=== PATIENT | female | born 1960 | race Caucasian/White ===

== ENCOUNTER 2018-02-17 22:06 | Inpatient (IN) | payer MEDICARE, OTHER ==
[~2018-02-17] VITALS: Ht 154.9 cm; Wt 64.4 kg
--- NOTE | 2018-02-17 22:10 | NUR ---
PT MATILDE FROM HOME. PER REPORT, CAREGIVER GOT WORRIED AFTER PT STARTED VOMITING AND STARTING ACTING "OFF" AND STARTED TO TALK "GIBBERISH" CONFUSED SO CAREGIVER CALLED SISTER THEN DECIDED TO CALL 911. PT GOWNED AND PLACED ON MONITOR. SATTING LOW 90'S PLACED ON O2@2L/MIN. JAKE WHITT.
--- NOTE | 2018-02-17 22:18 | NUR ---
DR GOFF AT BEDSIDE FOR EVAL.
[2018-02-17] MEDS ORDERED: OLANZAPINE 10 MG VIAL IM ONE ×2 (22:24→22:30)
[2018-02-17] MEDS ORDERED: LORAZEPAM INJ 2 MG/ML VIAL ONE (22:24)
[2018-02-17] MEDS ORDERED: ONDANSETRON HCL/PF 4 MG/2 ML VIAL ONE (22:29)
[2018-02-17] MEDS ORDERED: LORAZEPAM INJ 2 MG/ML VIAL IV ONE (22:30)
[2018-02-17] MEDS ORDERED: ONDANSETRON HCL/PF 4 MG/2 ML VIAL IVP ONE (22:30)
--- NOTE | 2018-02-17 22:39 | NUR ---
IV LINE STARTED BLOOD DRAWN AND SENT TO LAB.
--- NOTE | 2018-02-17 22:40 | NUR ---
SISTER RAYRAY LEFT CONTACT # [phone]
[2018-02-17 22:49] LABS: BASOPHILS % (AUTO) 0.2 % (0.0-2.0); EOSINOPHILS % (AUTO) 0.2 % (0.0-6.0); HEMATOCRIT 31 % (33-45); HEMOGLOBIN 10.7 g/dL (11.5-14.8); LYMPHOCYTES # (AUTO) 0.9 /CMM (0.8-4.8); LYMPHOCYTES % (AUTO) 8.9 % (20.0-44.0); MEAN CORPUSCULAR HEMOGLOBIN 33 PG (26.0-33.0); MEAN CORPUSCULAR HGB CONC 34 g/dl (31.0-36.0); MEAN CORPUSCULAR VOLUME 96 fL (82-100); MONOCYTES # (AUTO) 0.2 /CMM (0.1-1.30); MONOCYTES % (AUTO) 2.3 % (2.0-12.0); NEUTROPHILS % (AUTO) 88.4 % (43.0-81.0); PLATELET COUNT (AUTO) 161 /CMM (150-450); RED BLOOD CELL COUNT(AUTO) 3.27 MIL/uL (4.0-5.2); WHITE BLOOD COUNT (AUTO) 10.2 K/uL (4.3-11.0)
--- NOTE | 2018-02-17 22:50 | NUR ---
PT TO RADIOLOGY FOR HEAD CT SCAN VIA [facility].
[2018-02-17 22:57] LABS: APPEARANCE,URINE CLEAR (CLEAR); BILIRUBIN,URINE NEGATIVE (NEGATIVE); BLOOD, URINE NEGATIVE Ery/uL (NEGATIVE); COLOR,URINE YELLOW (YELLOW); KETONES,URINE 1+ (NEGATIVE); LEUKOCYTE ESTERASE ,URINE NEGATIVE (NEGATIVE); NITRITE, URINE NEGATIVE (NEGATIVE); PROTEIN,URINE NEGATIVE (NEGATIVE); UGLUCOSE TRACE mg/dL (NEGATIVE); UROBILINOGEN,URINE 0.2 EU/dL (0.2)
[2018-02-17 23:05] LABS: BACTERIA,URINE None seen /HPF (None Seen); RBC,URINE 0-2 /HPF (0-2); SQUAMOUS EPITHELIAL CELL,UR Few /HPF (None Seen); WBC,URINE 0-2 /HPF (0-3)
[2018-02-17 23:06] LABS: MUCUS,URINE Few /LPF (None Seen)
[2018-02-17 23:08] LABS: INR 1.05 (0.87-1.13)
[2018-02-17 23:10] LABS: TROPONIN I 0.03 ng/mL (0.00-0.056)
[2018-02-17] MEDS ORDERED: QUET300T2 PO (23:10)
[2018-02-17] MEDS ORDERED: TRAZ5POW PO (23:10)
[2018-02-17] MEDS ORDERED: SERT25TA PO (23:10)
[2018-02-17] MEDS ORDERED: TRAZ-213 PO (23:10)
[2018-02-17] MEDS ORDERED: TRAZ-182 PO (23:12)
[2018-02-17 23:18] LABS: ALBUMIN 3.3 g/dL (3.4-5.0); BILIRUBIN,DIRECT 0.2 mg/dL (0.0-0.2); BILIRUBIN,TOTAL 0.8 mg/dL (0.2-1.0); CALCIUM, SERUM 7.9 mg/dL (8.5-10.1); CREATININE 0.6 mg/dL (0.6-1.3); POTASSIUM 3.4 mmol/L (3.5-5.1); TOTAL PROTEIN, SERUM 6.7 g/dL (6.4-8.2)
[2018-02-17 23:23] LABS: THYROID STIMULATING HORMONE 1.309 uIU/mL (0.358-3.74)
--- NOTE | 2018-02-17 23:56 | NUR ---
REPORT GIVEN TO RIGOBERTO JONES. PT AWAITING TRANSFER TO FLOOR.
[2018-02-18] VITALS (23 sets, daily range): BP systolic 96–158; BP diastolic 53–97
[2018-02-18] MEDS ORDERED: IV Sodium Chloride 3% 500 ML 500 ML IV ONE
[2018-02-18 00:26] LABS: OSMOLALITY,URINE 423 mOS/kg (340-1090)
--- NOTE | 2018-02-18 00:30 | NUR ---
TRANSFERED TO ICU FLOOR VIA ACLS PROTOCOL. MEDS INFUSING TO THE FLOOR. NO S/S OF ADVERSE REACTIONS NOTED AT THIS TIME. RESP EVEN AND UNLABORED.
[2018-02-18 00:31] LABS: OSMOLALITY,SERUM 236 mOS/kg (278-305)
--- NOTE | 2018-02-18 00:35 | NUR ---
Received patient from ED via ACLS protocol patient awake alert and oriented to name otherwise confused.Patient admitted with Dx :Hyponatremia.Hypertonic Saline 3% infusing to left forearm and site intact.Patient made comfortable.VS stable.SR per monitor.Normotensive.Patient moves in bed independently.Fall precaution initiated.
--- NOTE | 2018-02-18 01:50 | NUR ---
Patient restless.Franklin catheter Fr# 16 inserted under aseptic technique by environmental studies department chairOdiliaPatient tolerated well.FC draining moderate clear yellow urine.Specimen for MRSA nares collected and sent to lab.
[2018-02-18] MEDS ORDERED: DEXTROSE 50%-WATER 50 ML DISP.SYRIN IV PRN (02:00)
[2018-02-18] MEDS ORDERED: LACTULOSE 10 G/15 ML UDC (PYXIS) PO PRN (02:00)
[2018-02-18] MEDS ORDERED: IV NS 0.9% 250 ML IV ONE (02:30)
[2018-02-18] MEDS: POTASSIUM CL. PREMIX PERIPHER. 50 ML IV SCH ×4 (02:38→05:38)
[2018-02-18] MEDS ORDERED: ENOXAPARIN SODIUM 40 MG/0.4 ML DISP.SYRIN SQ SCH (03:00)
[2018-02-18] MEDS ORDERED: QUETIAPINE FUMARATE 25 MG TABLET PO ONE (03:30)
[2018-02-18] MEDS ORDERED: ZOLPIDEM TARTRATE 5 MG TABLET PO PRN (03:30)
[2018-02-18] MEDS ORDERED: ONDANSETRON HCL/PF 4 MG/2 ML VIAL IVP PRN (03:30)
[2018-02-18] MEDS ORDERED: ACETAMINOPHEN 325 MG TABLET PO PRN (03:30)
[2018-02-18] MEDS ORDERED: MAGNESIUM HYDROXIDE 30 ML UDC PO PRN (03:30)
--- NOTE | 2018-02-18 03:35 | NUR ---
Patient trying to get out of bed.Fall precaution maintained with side rails up x 3.Bed exit alarm on,locked and low position.Call light at bedside within easy reach with instructions.Claribel Gregg NP notified with orders and carried out.Swallow nurse screen done.Patient able to swallow ice water without difficulty. Seroquel po administered well tolerated.
[2018-02-18 04:31] LABS: CALCIUM, SERUM 8.2 mg/dL (8.5-10.1); CREATININE 0.5 mg/dL (0.6-1.3); POTASSIUM 3.8 mmol/L (3.5-5.1)
[2018-02-18 04:51] LABS: MAGNESIUM 1.5 mg/dL (1.8-2.4); PHOSPHORUS 2.7 mg/dL (2.5-4.9)
[2018-02-18] MEDS: BLOOD SUGAR DIAGNOSTIC 1 EACH STRIP IN SCH ×3 (06:03→18:14)
--- NOTE | 2018-02-18 06:24 | NUR ---
Patient awake and very agitated trying to get out of bed.Applied bilateral soft wrist restraints for safety.Fall precaution maintained.RECEPTIONIST SECRETARYYuriy notified.VS remains stable.Denies pain or sob.K+ level 3.4 KCL 40 meq IV completed.Patient with large volume of urine output.Continue to monitor.
[2018-02-18] MEDS: IV NS 0.9% 1,000 ML IV PRN (08:43)
[2018-02-18] MEDS: Magnesium 1GM/D5W 100ML PREMIX 100 ML IV SCH ×2 (10:00→11:14)
--- NOTE | 2018-02-18 10:45 | NUR ---
ICU/RN: Dr Bowen rounds; pt currently ambulating in hallway, no distress noted, hyperverbal, forgetful, requiring frequent orientation and 1:1 monitoring. Labs and pt hx discussed, pt clear for downgrade to tele. CT chest ordered with one time dose of ativan for anxiety. Aware that the patient is non-compliant and refuses monitoring and procedures. Relayed information from Dr Avalos (pt's physician) requesting a call, # provided. smart energy specialist updated and aware.
--- NOTE | 2018-02-18 10:59 | NUR ---
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 patient is refusing. Nurse told me patient is going to get ativan . When ready RN will call us.
[2018-02-18] MEDS ORDERED: LORAZEPAM INJ 2 MG/ML VIAL IV ONE (11:00)
--- NOTE | 2018-02-18 12:00 | NUR ---
ICU/RN: Pt hyperactive, easily distracted, unable to sit still in bed for extended periods of time. Ambulated in hallway, off monitoring, Dr Bowen aware. No distress noted. Awaiting 1:1 sitter.
[2018-02-18 13:03] LABS: CALCIUM, SERUM 8.6 mg/dL (8.5-10.1); CREATININE 0.9 mg/dL (0.6-1.3); POTASSIUM 3.4 mmol/L (3.5-5.1)
[2018-02-18] MEDS: QUETIAPINE FUMARATE 100 MG TABLET PO SCH (16:33)
[2018-02-18 18:11] LABS: URINE SODIUM, RANDOM 33 mmol/l (40-220)
[2018-02-18 18:56] LABS: OSMOLALITY,URINE 164 mOS/kg (340-1090)
--- NOTE | 2018-02-18 19:01 | NUR ---
ICU/RN: Report given to KAREN Cortez for tele downgrade. To be transferred by 1:1 sitter and noc extension service specialist in charge. Pt remains comfortable and in stable condition. FC draining well to gravity.
--- NOTE | 2018-02-18 19:45 | NUR ---
JAZZ MUSICIAN NOTES RECEIVED PT ON BED FROM ICU NURSE. PT SLEEPING UPON TRANSFER. WITH ACUTE MEDICAL RESTRAIN BILATERAL HANDS SOFT RESTRAINS. ON ROOM AIR PT SATURATING WELL ON SIGN OF RESPIRATORY DISTRESS. ON TELE MONITOR SR 80S. PT ON A 1 :1 SITTER. IV ACCESS ON LH G20 AND RIGHT FOREARM G20 NS RUNNING AT 75CC/HR RUNNING WELL NO SIGN OF INFILTRATION. HEAD OF BED ELEVATED. SIDE RAILS UP. CALL LIGHT WITHIN REACH. BED ALARM ON. WILL CONTINUE TO MONITOR PT CLOSELY.
--- NOTE | 2018-02-18 21:00 | NUR ---
FLIGHT OPERATIONS COORDINATOR NOTES PT RESTRAINTS RELEASE, PT SLEEPING AND 1 TO 1 SITTER AT BEDSIDE.
[2018-02-18] MEDS: ENOXAPARIN SODIUM 40 MG/0.4 ML DISP.SYRIN SQ SCH (21:29)
[2018-02-19] VITALS: BP 106/63
[2018-02-19] MEDS: BLOOD SUGAR DIAGNOSTIC 1 EACH STRIP IN SCH ×5 (00:13→23:32)
[2018-02-19 04:00] VITALS: BP 120/74
[2018-02-19] MEDS: IV NS 0.9% 1,000 ML IV PRN (06:09)
--- NOTE | 2018-02-19 06:28 | NUR ---
PEARL DIGGER NOTES PT CONFUSED, TRYING TO GET OUT OF BED. PULLING OUT IV LINES AND MACDONALD CATH. SITTER AT BEDSIDE.
--- NOTE | 2018-02-19 07:16 | NUR ---
PUBLIC RELATIONS DIRECTOR NOTES NO ACUTE CHANGES NOTED DURING THE SHIFT. PROVIDED COMFORT AND SAFETY. BED ALARM ON. HEAD OF BED ELEVATED. SIDE RAILS UP. CALL LIGHT WITHIN REACH. ENDORSED TO THE AM NURSE FOR CONTINUITY FOR CARE.
[2018-02-19 07:32] LABS: BASOPHILS % (AUTO) 0.2 % (0.0-2.0); EOSINOPHILS % (AUTO) 1.7 % (0.0-6.0); HEMATOCRIT 39 % (33-45); HEMOGLOBIN 13.1 g/dL (11.5-14.8); LYMPHOCYTES # (AUTO) 1.4 /CMM (0.8-4.8); LYMPHOCYTES % (AUTO) 22.4 % (20.0-44.0); MEAN CORPUSCULAR HEMOGLOBIN 32 PG (26.0-33.0); MEAN CORPUSCULAR HGB CONC 33 g/dl (31.0-36.0); MEAN CORPUSCULAR VOLUME 97 fL (82-100); MONOCYTES # (AUTO) 0.4 /CMM (0.1-1.30); NEUTROPHILS # (AUTO) 4.3 /CMM (1.8-8.9); NEUTROPHILS % (AUTO) 68.7 % (43.0-81.0); PLATELET COUNT (AUTO) 194 /CMM (150-450); RDW COEFFICIENT OF VARIATION 13.7 (11.5-15.0); RED BLOOD CELL COUNT(AUTO) 4.05 MIL/uL (4.0-5.2); WHITE BLOOD COUNT (AUTO) 6.3 K/uL (4.3-11.0)
--- NOTE | 2018-02-19 07:40 | NUR ---
RN NOTE RECEIVED PATIENT AWAKE WATCHING T.V. ALERT AND ORIENTED X1-2 WITH EPISODES OF CONFUSION. BREATHING EVEN AND UNLABORED WITH NO DISTRESS NOTED. ON RECRUITING INTERN SINUS RHYTHM HR OF 86. F/C INTACT AND PATENT WITH ADEQUATE FLOW OF URINE. LEFT HAND IV SITE INTACT AND PATENT. ALL SAFETY MEASURES DONE. BED LOW AND LOCKED POSITION. PLACED CALL LIGHT WITHIN REACH. WILL CONTINUE TO MONITOR.
[2018-02-19 07:48] LABS: CALCIUM, SERUM 8.9 mg/dL (8.5-10.1); CREATININE 0.7 mg/dL (0.6-1.3); MAGNESIUM 2.3 mg/dL (1.8-2.4); PHOSPHORUS 2.5 mg/dL (2.5-4.9); POTASSIUM 3.2 mmol/L (3.5-5.1)
[2018-02-19 07:57] LABS: THYROID STIMULATING HORMONE 2.233 uIU/mL (0.358-3.74); URIC ACID 2.5 mg/dL (2.6-7.2)
[2018-02-19 08:00] VITALS: BP 146/85
[2018-02-19] MEDS: QUETIAPINE FUMARATE 100 MG TABLET PO SCH ×2 (08:00→16:13)
--- NOTE | 2018-02-19 09:45 | NUR ---
RN NOTE SEEN BY DR STARR WITH NEW ORDERS FOR PSYCH CONSULT FOR PATIENT. CARRIED OUT AND NOTED.
[2018-02-19] MEDS ORDERED: POTASSIUM CL. PREMIX PERIPHER. 50 ML IV SCH (10:30)
[2018-02-19] MEDS ORDERED: POTASSIUM CHLORIDE 20 MEQ TAB.PRT.SR PO ONE (10:45)
[2018-02-19 12:00] VITALS: BP 141/92
[2018-02-19] MEDS: INSULIN REGULAR, HUMAN 100 UNIT/ML 3 ML VIAL SQ PRN ×3 (12:13→23:34)
[2018-02-19] MEDS: HYDROCODONE/APAP 5/325MG 1 EACH TABLET PO PRN ×2 (13:24→17:43)
[2018-02-19 16:00] VITALS: BP 132/84
--- NOTE | 2018-02-19 17:35 | NUR ---
RN NOTE PATIENT PULLED OUT MACDONALD CATHETER, DID NOT TRY TO REINSERT MACDONALD. PATIENT IS AGITATED WILL ENDORSE TO NEXT SHIFT TO TRY TO REINSERT MACDONALD. CHARGE NURSE AND MD MADE AWARE.
[2018-02-19 20:00] VITALS: BP 130/82
[2018-02-19] MEDS: ENOXAPARIN SODIUM 40 MG/0.4 ML DISP.SYRIN SQ SCH (20:15)
[2018-02-20] VITALS: BP 140/92
[2018-02-20 04:00] VITALS: BP 154/81
[2018-02-20] MEDS: INSULIN REGULAR, HUMAN 100 UNIT/ML 3 ML VIAL SQ PRN (05:26)
[2018-02-20] MEDS: BLOOD SUGAR DIAGNOSTIC 1 EACH STRIP IN SCH ×2 (05:26→12:00)
[2018-02-20 06:15] LABS: BASOPHILS % (AUTO) 0.3 % (0.0-2.0); EOSINOPHILS % (AUTO) 1.7 % (0.0-6.0); HEMATOCRIT 39 % (33-45); HEMOGLOBIN 12.8 g/dL (11.5-14.8); LYMPHOCYTES # (AUTO) 1.7 /CMM (0.8-4.8); LYMPHOCYTES % (AUTO) 19.7 % (20.0-44.0); MEAN CORPUSCULAR HEMOGLOBIN 33 PG (26.0-33.0); MEAN CORPUSCULAR HGB CONC 33 g/dl (31.0-36.0); MEAN CORPUSCULAR VOLUME 98 fL (82-100); MONOCYTES # (AUTO) 0.9 /CMM (0.1-1.30); MONOCYTES % (AUTO) 10.2 % (2.0-12.0); NEUTROPHILS # (AUTO) 5.9 /CMM (1.8-8.9); NEUTROPHILS % (AUTO) 68.1 % (43.0-81.0); PLATELET COUNT (AUTO) 226 /CMM (150-450); RDW COEFFICIENT OF VARIATION 13.7 (11.5-15.0); RED BLOOD CELL COUNT(AUTO) 3.93 MIL/uL (4.0-5.2); WHITE BLOOD COUNT (AUTO) 8.7 K/uL (4.3-11.0)
[2018-02-20 06:50] LABS: CALCIUM, SERUM 9.5 mg/dL (8.5-10.1); CREATININE 0.7 mg/dL (0.6-1.3); POTASSIUM 4.2 mmol/L (3.5-5.1)
[2018-02-20 08:00] VITALS: BP 104/53
[2018-02-20] MEDS: QUETIAPINE FUMARATE 100 MG TABLET PO SCH (09:53)
[2018-02-20] MEDS ORDERED: ASPIRIN EC 81 MG TABLET.DR PO SCH (10:30)
--- NOTE | 2018-02-20 15:44 | NUR ---
DREDGE PUMPER INITIAL NOTES RECEIVED REPORT AND PATIENT FROM PM NURSE, A&O X4 CZECH SPEAKING REPEATING WORDS VERY ANXIOUS, 07/18 SITTER AT BEDSIDE, ALL NEEDS MET, ALL SAFETY MEASURES INITIATED, IV SITE INTACT AND PATENT NO S/S OF INFILTRATION NOTED, WILL CONTINUE TO MONITOR.
--- NOTE | 2018-02-20 16:56 | NUR ---
PARACHUTE/COMBATANT DIVER OFFICER ENDING NOTES PATIENT DC PAPERWORK SIGNED AND COMPLETED, PATIENTS SISTER RAYRAY AT BEDSIDE, GAVE HER THE DC PAPERWORK EXPLAINED EXIT CARE, SPOKE WITH [facility] [employer]NAGEMENT TO CONFIRM [facility] AND WILL HAVE NURSE COME DO LAB DRAW, PATIENTS SISTER RAYRAY AWARE OF THIS AND EXPLAINED THAT NURSE WILL COME HOME TO DRAW LABS, ALL DUE MEDS GIVEN ORDERED PER PATIENT APPROVAL, RIGHT FA IV REMOVED NO INFILTRATION NOTED, LEFT VIA GURNEY WITH ANDREIA ABRAHAM AND SISTER RAYRAY, WILL CONTINUE CARE AT HOME.
[2018-02-20] MEDS ORDERED: QUETIAPINE FUMARATE 100 MG TABLET PO SCH (21:00)
== END 2018-02-20 17:00 | disposition home or self-care (01) | DRG 640 ==
LOC: ER 22:08 → ICU 02-18 00:13 → TELE-TD 02-18 19:07 → TELE1 02-18 19:36
PROVIDERS: ADMIT Nurse Practitioner Acute Care; ATTEND Nurse Practitioner Acute Care
DX: E87.1 Hypo-osmolality and hyponatremia (principal); G92 Toxic encephalopathy; E72.20 Disorder of urea cycle metabolism, unspecified; E44.1 Mild protein-calorie malnutrition; D68.59 Other primary thrombophilia; J98.11 Atelectasis; J90 Pleural effusion, not elsewhere classified; E83.42 Hypomagnesemia; F03.90 Unspecified dementia, unspecified severity, without behavioral disturbance, psychotic disturbance, mood disturbance, and anxiety; T43.205A Adverse effect of unspecified antidepressants, initial encounter; Y92.129 Unspecified place in nursing home as the place of occurrence of the external cause; Z79.899 Other long term (current) drug therapy; E87.6 Hypokalemia; D63.8 Anemia in other chronic diseases classified elsewhere; Z74.09 Other reduced mobility; I10 Essential (primary) hypertension; R73.9 Hyperglycemia, unspecified; Z66 Do not resuscitate; F29 Unspecified psychosis not due to a substance or known physiological condition
CPT/HCPCS: 36415; 70450-TC; 71045-TC; 71250-TC; 80048-TC; 80061-TC; 80076-TC; 80305; 81000-TC; 82140-TC; 82728-TC; 82962-TC; 83540-TC; 83735-TC; 83935-TC; 84100-TC; 84300-TC; 84443-TC; 84484-TC; 84550-TC; 85025-TC; 85730-TC; 87081-TC; 93307-TC; A4606; G0480; J1650; J1815; J2060; J2405; J3475; J3480; J3490; J7030; J7050; Z7610